=== PATIENT | male | born 1970 | race Caucasian/White ===

== ENCOUNTER 2017-08-20 10:39 | Emergency (ER) | payer MEDICAID ==
[~2017-08-20] VITALS: Ht 165.1 cm; Wt 90.9 kg
[~2017-08-20 10:39] MED LIST: ASPI81 PO; INSLAN SQ; INSNOV SQ; METF500T6 PO; SIMV-260 PO
[2017-08-20 10:53] LABS: GLUCOSE,POINT OF CARE 202 MG/DL (70-110)
[2017-08-20 11:37] VITALS: BP 146/88
[2017-08-20] MEDS ORDERED: ACETAMINOPHEN 325 MG TABLET PO ONE (12:30)
[2017-08-20] MEDS ORDERED: CYCLOBENZAPRINE HCL 10 MG TABLET PO ONE (12:30)
== END 2017-08-20 13:16 | disposition home or self-care (01) ==
LOC: EMS 10:41
DX: S16.1XXA Strain of muscle, fascia and tendon at neck level, initial encounter (principal); I10 Essential (primary) hypertension; E11.9 Type 2 diabetes mellitus without complications; E78.00 Pure hypercholesterolemia, unspecified; X58.XXXA Exposure to other specified factors, initial encounter; Y93.89 Activity, other specified; Y92.89 Other specified places as the place of occurrence of the external cause; Y99.8 Other external cause status
CPT/HCPCS: 99283

== ENCOUNTER 2017-08-22 10:09 | Emergency (ER) | payer MEDICAID ==
[~2017-08-22] VITALS: Ht 165.1 cm; Wt 90.5 kg
[2017-08-22] MEDS ORDERED: LOSA25TA21 PO (10:25)
[2017-08-22 10:37] LABS: GLUCOSE,POINT OF CARE 146 MG/DL (70-110)
[2017-08-22 10:52] VITALS: BP 141/87
[2017-08-22 11:03] LABS: BASOPHILS % (AUTO) 0.8 % (0.0-2.0); EOSINOPHILS % (AUTO) 2.5 % (1.0-6.0); HEMATOCRIT 42.6 % (41-53); HEMOGLOBIN 14.7 g/dL (13.5-17.5); LYMPHOCYTES # (AUTO) 1.7 K/uL (1.0-4.8); LYMPHOCYTES % (AUTO) 30.7 % (22.0-44.0); MEAN CORPUSCULAR HEMOGLOBIN 30.7 pg (26.0-34.0); MEAN CORPUSCULAR HGB CONC 34.6 G/dL (31.0-37.0); MEAN CORPUSCULAR VOLUME 89 fL (80-100); MONOCYTES # (AUTO) 0.4 K/uL (0.1-1.0); NEUTROPHILS # (AUTO) 3.2 K/uL (1.8-7.7); PLATELET COUNT (AUTO) 248 K/uL (150-450); RED BLOOD CELL COUNT(AUTO) 4.79 MIL/uL (4.50-5.90); RED CELL DISTRIBUTION WIDTH 13.6 % (11.5-14.5)
[2017-08-22 11:11] LABS: PROTHROMBIN TIME 10.5 SEC (9.4-11.6)
[2017-08-22 11:12] LABS: ANION GAP 6 mmol/L (8-16); CALCIUM, TOTAL 8.3 mg/dL (8.8-10.5); CARBON DIOXIDE 30 mmol/L (22-29); CHLORIDE 104 mmol/L (98-107); CREATININE 0.72 mg/dL (0.60-1.30); GLOMERULAR FILTR. RATE CALC > 60 mL/min (>60); GLUCOSE,RANDOM 160 mg/dL (70-110); POTASSIUM 4.5 mmol/L (3.5-5.1); SODIUM SERUM 140 mmol/L (136-145); UREA NITROGEN, BLOOD 8 mg/dL (7-18)
[2017-08-22 11:18] LABS: ALANINE AMINOTRANSFERASE 26 U/L (12-78); ALBUMIN 3.7 g/dL (3.4-5.0); ALKALINE PHOSPHATASE 89 U/L (46-116); ASPARTATE AMINOTRANSFERASE 16 U/L (15-37); BILIRUBIN,TOTAL 0.3 mg/dL (0.1-1.0); TOTAL PROTEIN, SERUM 7.5 g/dL (6.4-8.2)
[2017-08-22] MEDS ORDERED: ACYCLOVIR 200 MG CAPSULE PO ONE (12:45)
[2017-08-22] MEDS ORDERED: PredniSONE 20 MG TABLET PO ONE (12:45)
== END 2017-08-22 13:12 | disposition home or self-care (01) ==
LOC: EMS 10:11
DX: G51.0 Bell's palsy (principal); I10 Essential (primary) hypertension; E11.9 Type 2 diabetes mellitus without complications; E78.00 Pure hypercholesterolemia, unspecified
CPT/HCPCS: 36415; 70450; 80053; 82962; 85025; 85610; 99285; J7512

== ENCOUNTER 2018-06-21 16:58 | Emergency (ER) | payer MEDICAID ==
[~2018-06-21] VITALS: Ht 170.2 cm; Wt 90.9 kg
[~2018-06-21 16:58] MED LIST changes: +LOSA25TA41 PO; +METF-960 PO; -METF500T6 PO
[2018-06-21 17:14] LABS: GLUCOSE,POINT OF CARE 306 MG/DL (70-110)
[2018-06-21] MEDS ORDERED: IBUPROFEN 800 MG TABLET PO ONE (17:45)
[2018-06-21] MEDS ORDERED: ACETAMINOPHEN 325 MG TABLET PO ONE (17:45)
[2018-06-21] MEDS ORDERED: MAALOX/LIDOCAINE/NYSTATIN SUSP 5 ML ORAL.SYG PO ONE (18:00)
[2018-06-21] MEDS ORDERED: DEXAMETHASONE 4 MG TABLET PO ONE (18:00)
[2018-06-21] MEDS ORDERED: INSULIN REGULAR, HUMAN 100 UNITS/ML SQ ONE (18:00)
[2018-06-21 19:44] LABS: GLUCOSE,POINT OF CARE 236 MG/DL (70-110)
[2018-06-21] MEDS ORDERED: PENICILLIN G BENZATHINE LA 1,200,000 UNITS/2 ML SYRINGE IM ONE (20:15)
[2018-06-21 21:00] VITALS: BP 126/80
== END 2018-06-21 21:00 | disposition home or self-care (01) ==
LOC: EMS 16:59
DX: J02.9 Acute pharyngitis, unspecified (principal); E11.65 Type 2 diabetes mellitus with hyperglycemia; I10 Essential (primary) hypertension; E78.00 Pure hypercholesterolemia, unspecified; Z79.4 Long term (current) use of insulin; Z79.82 Long term (current) use of aspirin; Z79.84 Long term (current) use of oral hypoglycemic drugs
CPT/HCPCS: 82962; 96372; 99284; J0561; J1815; J8540

== ENCOUNTER 2018-06-25 15:33 | Emergency (ER) | payer MEDICAID ==
[~2018-06-25] VITALS: Ht 175.3 cm; Wt 90.9 kg
[2018-06-25 15:54] LABS: GLUCOSE,POINT OF CARE 303 MG/DL (70-110)
[2018-06-25] MEDS ORDERED: PERTUSS(ACELL),DIPH,TET VAC/PF 0.5 ML VIAL IM ONE (18:00)
[2018-06-25] MEDS ORDERED: BACITRACIN 0.9 GM PACKET OINTMENT TP ONE (18:30)
[2018-06-25 19:00] VITALS: BP 129/78
== END 2018-06-25 19:15 | disposition home or self-care (01) ==
LOC: EMS 15:33
DX: S01.01XA Laceration without foreign body of scalp, initial encounter (principal); I10 Essential (primary) hypertension; E11.9 Type 2 diabetes mellitus without complications; E78.00 Pure hypercholesterolemia, unspecified; Z79.4 Long term (current) use of insulin; Z79.899 Other long term (current) drug therapy; W20.8XXA Other cause of strike by thrown, projected or falling object, initial encounter; Y93.89 Activity, other specified; Y92.89 Other specified places as the place of occurrence of the external cause; Y99.8 Other external cause status
CPT/HCPCS: 12002; 90471; 90715

== ENCOUNTER 2018-07-05 08:48 | Emergency (ER) | payer MEDICAID ==
[~2018-07-05] VITALS: Ht 172.7 cm; Wt 90.9 kg
[2018-07-05 09:13] VITALS: BP 142/91
[2018-07-05 09:14] LABS: GLUCOSE,POINT OF CARE 222 MG/DL (70-110)
== END 2018-07-05 09:32 | disposition home or self-care (01) ==
LOC: EMS 08:49
DX: S01.01XD Laceration without foreign body of scalp, subsequent encounter (principal); I10 Essential (primary) hypertension; E78.00 Pure hypercholesterolemia, unspecified; E11.9 Type 2 diabetes mellitus without complications; Z48.02 Encounter for removal of sutures; Z79.4 Long term (current) use of insulin; Z79.82 Long term (current) use of aspirin; X58.XXXD Exposure to other specified factors, subsequent encounter

== ENCOUNTER 2020-04-12 09:21 | Emergency (ER) | payer MEDICAID ==
[~2020-04-12] VITALS: Ht 170.2 cm; Wt 84.1 kg
[~2020-04-12 09:21] MED LIST changes: +ASPI-728 PO; -ASPI81 PO; +LOSA25TA21 PO; -LOSA25TA41 PO
[2020-04-12 09:38] LABS: GLUCOSE,POINT OF CARE 169 MG/DL (70-110)
[2020-04-12] MEDS ORDERED: KETOROLAC TROMETHAMINE 30 MG/ML VIAL IVP ONE (10:00)
[2020-04-12] MEDS ORDERED: ONDANSETRON HCL 4 MG/2 ML VIAL IVP ONE (10:00)
[2020-04-12] MEDS ORDERED: SODIUM CHLORIDE 0.9% 1,000 ML IV ONE (10:00)
[2020-04-12 10:30] LABS: BASOPHILS % (AUTO) 0.4 % (0.0-2.0); EOSINOPHILS % (AUTO) 0.4 % (1.0-6.0); HEMATOCRIT 42.9 % (41-53); HEMOGLOBIN 14.4 g/dL (13.5-17.5); LYMPHOCYTES # (AUTO) 0.8 K/uL (1.0-4.8); LYMPHOCYTES % (AUTO) 7.6 % (22.0-44.0); MEAN CORPUSCULAR HEMOGLOBIN 31.2 pg (26.0-34.0); MEAN CORPUSCULAR HGB CONC 33.7 G/dL (31.0-37.0); MEAN CORPUSCULAR VOLUME 93 fL (80-100); MONOCYTES # (AUTO) 0.7 K/uL (0.1-1.0); MONOCYTES % (AUTO) 6.6 % (2.0-9.0); NEUTROPHILS # (AUTO) 9.2 K/uL (1.8-7.7); PLATELET COUNT (AUTO) 216 K/uL (150-450); RED BLOOD CELL COUNT(AUTO) 4.62 MIL/uL (4.50-5.90); RED CELL DISTRIBUTION WIDTH 13.5 % (11.5-14.5)
[2020-04-12 10:38] LABS: APPEARANCE,URINE CLEAR (CLEAR); BILIRUBIN,URINE NEGATIVE (NEGATIVE); GLUCOSE, URINE (UA) 250 mg/dL (NEGATIVE); KETONES,URINE 40 mg/dL (NEGATIVE); LEUKOCYTE ESTERASE ,URINE NEGATIVE (NEGATIVE); NITRATE,URINE NEGATIVE (NEGATIVE); OCCULT BLOOD,URINE NEGATIVE (NEGATIVE); PROTEIN,URINE NEGATIVE (NEGATIVE); UROBILINOGEN,URINE 0.2 mg/dL (<=1.0)
[2020-04-12 10:39] LABS: ANION GAP 10 mmol/L (8-16); CALCIUM, TOTAL 8.8 mg/dL (8.8-10.5); CARBON DIOXIDE 27 mmol/L (22-29); CHLORIDE 104 mmol/L (98-107); CREATININE 0.62 mg/dL (0.60-1.30); GLOMERULAR FILTR. RATE CALC > 60 mL/min (>60); GLUCOSE,RANDOM 201 mg/dL (70-110); SODIUM SERUM 141 mmol/L (136-145); UREA NITROGEN, BLOOD 16 mg/dL (7-18)
[2020-04-12 10:48] LABS: ALANINE AMINOTRANSFERASE 24 U/L (12-78); ALKALINE PHOSPHATASE 94 U/L (46-116); ASPARTATE AMINOTRANSFERASE 16 U/L (15-37); BILIRUBIN,TOTAL 0.5 mg/dL (0.1-1.0); LIPASE 52 U/L (73-393); TOTAL PROTEIN, SERUM 7.5 g/dL (6.4-8.2)
[2020-04-12 11:15] LABS: BACTERIA,URINE None Seen /HPF (None Seen); RBC,URINE None Seen /HPF (0-2); WBC,URINE None Seen /HPF (0-5)
[2020-04-12 11:38] VITALS: BP 119/71
== END 2020-04-12 11:54 | disposition home or self-care (01) ==
LOC: EMS 09:21
DX: R10.12 Left upper quadrant pain (principal); E11.9 Type 2 diabetes mellitus without complications; E78.00 Pure hypercholesterolemia, unspecified; I10 Essential (primary) hypertension
CPT/HCPCS: 36415; 80053; 81001; 82962; 83690; 85025; 96361; 96374; 96375; 99284; J1885; J2405; J7030

== ENCOUNTER 2021-01-05 07:48 | Emergency (ER) | payer MEDICAID ==
[~2021-01-05] VITALS: Ht 167.6 cm; Wt 88.0 kg
[~2021-01-05 07:48] MED LIST changes: +ASPI-1450 PO; -ASPI-728 PO; +METF-1211 PO; -METF-960 PO
[2021-01-05 07:53] VITALS: BP 136/87
[2021-01-05] MEDS ORDERED: BACLOFEN 10 MG TABLET PO ONE (08:45)
[2021-01-05] MEDS ORDERED: KETOROLAC TROMETHAMINE 60 MG/2 ML VIAL IM ONE (08:45)
[2021-01-05] MEDS ORDERED: ACETAMINOPHEN/CODEINE 300-30 MG TABLET PO ONE (08:45)
== END 2021-01-05 11:25 | disposition home or self-care (01) ==
LOC: EMS 07:53
DX: S83.91XA Sprain of unspecified site of right knee, initial encounter (principal); E11.9 Type 2 diabetes mellitus without complications; Z79.4 Long term (current) use of insulin; Z79.84 Long term (current) use of oral hypoglycemic drugs; X58.XXXA Exposure to other specified factors, initial encounter; Y93.89 Activity, other specified; Y92.89 Other specified places as the place of occurrence of the external cause; Y99.8 Other external cause status
CPT/HCPCS: 29505; 73562; 99283; J1885

== ENCOUNTER 2022-02-08 07:41 | Emergency (ER) | payer MEDICAID, OTHER ==
[~2022-02-08] VITALS: Ht 154.9 cm; Wt 84.1 kg
[~2022-02-08 07:41] MED LIST changes: +LOSA-381 PO; -LOSA25TA21 PO
[2022-02-08 07:49] VITALS: BP 114/76
[2022-02-08] MEDS ORDERED: ACETAMINOPHEN 500 MG TABLET PO ONE (08:30)
[2022-02-08] MEDS ORDERED: KETOROLAC TROMETHAMINE 60 MG/2 ML VIAL IM ONE (08:30)
[2022-02-08] MEDS ORDERED: IBUP-1554 PO (09:12)
[2022-02-08] MEDS ORDERED: ACET-2080 PO (09:12)
== END 2022-02-08 09:18 | disposition home or self-care (01) ==
LOC: EMS 07:46
DX: M25.562 Pain in left knee (principal); E11.9 Type 2 diabetes mellitus without complications
CPT/HCPCS: 99283; 29505; 82962; 73562; 96372; J1885

== ENCOUNTER 2022-02-15 10:03 | Emergency (ER) | payer OTHER ==
[~2022-02-15] VITALS: Ht 165.1 cm; Wt 82.0 kg
[~2022-02-15 10:03] MED LIST changes: +ACET-2080 PO; +IBUP-1554 PO
[2022-02-15 10:09] VITALS: BP 122/80
[2022-02-15 11:22] LABS: COVID AG,FIA SOURCE NASAL SWAB
[2022-02-15 12:05] LABS: INFLUENZA TYPE A NEGATIVE FOR TYPE A (NEGATIVE); INFLUENZA TYPE B NEGATIVE FOR TYPE B (NEGATIVE)
[2022-02-15] MEDS ORDERED: ACET-66 PO (12:38)
[2022-02-15] MEDS ORDERED: IBUP-1554 PO (12:38)
[2022-02-15] MEDS ORDERED: GUAIFDM PO (12:38)
[2022-02-15] MEDS ORDERED: NIRM1TAB PO (12:38)
== END 2022-02-15 12:47 | disposition home or self-care (01) ==
LOC: EMS 10:07
DX: U07.1 COVID-19 (principal); J06.9 Acute upper respiratory infection, unspecified; F10.20 Alcohol dependence, uncomplicated; E11.9 Type 2 diabetes mellitus without complications; R50.9 Fever, unspecified
CPT/HCPCS: 82962; 87804; 99283

== ENCOUNTER 2023-10-06 07:36 | Emergency (ER) | payer OTHER ==
[~2023-10-06] VITALS: Ht 170.2 cm; Wt 72.7 kg
[~2023-10-06 07:36] MED LIST changes: +ACET-66 PO; +GUAIFDM PO; +NIRM1TAB4 PO
[2023-10-06 07:47] VITALS: BP 117/86; PULSE 60; RESP 16; TEMP 98.2
[2023-10-06] MEDS ORDERED: ERYT3.5O8 OU (08:54)
== END 2023-10-06 09:05 | disposition home or self-care (01) ==
LOC: EMS 07:37
DX: H10.89 Other conjunctivitis (principal); E11.9 Type 2 diabetes mellitus without complications
CPT/HCPCS: 82962; 99283

== ENCOUNTER 2025-01-26 10:54 | Emergency (ER) | payer OTHER ==
[~2025-01-26] VITALS: Ht 177.8 cm; Wt 81.8 kg
[~2025-01-26 10:54] MED LIST changes: -ASPI-1450 PO; -GUAIFDM PO; -LOSA-381 PO; -NIRM1TAB4 PO
[2025-01-26 10:59] VITALS: TEMP 98
[2025-01-26] MEDS ORDERED: NAPR-998 PO (10:59)
[2025-01-26] MEDS: ACETAMINOPHEN 500 MG TABLET PO ONE (12:39)
[2025-01-26 13:22] VITALS: BP 138/83; PULSE 67; RESP 18; O2SAT 99
== END 2025-01-26 13:56 | disposition home or self-care (01) ==
LOC: EMS 10:57
DX: S63.501A Unspecified sprain of right wrist, initial encounter (principal); E11.9 Type 2 diabetes mellitus without complications; Z79.899 Other long term (current) drug therapy; W01.0XXA Fall on same level from slipping, tripping and stumbling without subsequent striking against object, initial encounter; Y93.89 Activity, other specified; Y92.89 Other specified places as the place of occurrence of the external cause; Y99.8 Other external cause status
CPT/HCPCS: 99283